=== PATIENT | female | born 2000 | race Caucasian/White ===

== ENCOUNTER → 2019-06-09 17:18 | Observation (INO) ==
[2019-06-09 14:15] LABS: Bilirubin,Urine Negative (Negative); Blood,Urine Negative (Negative); Color,Urine Yellow (Yellow); Glucose,Urine (UA) Normal (Normal); Ketones,Urine Negative (Negative); Leukocyte Esterase,Urine Negative (Negative); Nitrite,Urine Negative (Negative); Protein,Urine Trace mg/dL (Neg-Trace); Specific Gravity,Urine 1.018 (1.010-1.025); Urobilinogen,Urine Normal (Normal)
[2019-06-09 14:17] LABS: Bacteria,Urine Few per hpf (None-Few); Hyaline Casts,Urine None Seen per lpf (None-Few); Squamous Epithelial Cell,Urine Many per lpf (None-Few)
[2019-06-09 14:29] LABS: Clarity,Urine Hazy (Clear)
[2019-06-09 14:56] LABS: Amphetamine Screen,Urine Negative ng/mL (Cutoff=1000); Barbiturate Screen,Urine Negative ng/mL (Cutoff=200); Benzodiazepines Screen,Urine Negative ng/mL (Cutoff=200); Cannabinoid Screen,Urine Positive ng/mL (Cutoff = 50); Cocaine Screen,Urine Negative ng/mL (Cutoff= 300); Opiate Screen,Urine Negative ng/mL (Cutoff=300); Phencyclidine Screen,Urine Negative ng/mL (Cutoff=25)
[2019-06-09 15:10] LABS: Basophils % 0.3 %; Eosinophils # 0.3 K/mcL (0.0-0.6); Eosinophils % 2.2 %; Hematocrit 36.1 % (35.3-44.9); Immature Granulocytes % 0.7 % (0-4); Lymphocytes # 1.7 K/mcL (0.6-4.6); Lymphocytes % 10.9 %; Mean Corpuscular HGB Conc 33.2 g/dL (31.6-35.5); Mean Corpuscular Hemoglobin 32.1 pg (28.0-33.3); Mean Corpuscular Volume 96.5 fL (83.0-100.0); Mean Platelet Volume 11.2 fL (9.4-12.4); Monocytes # 0.5 K/mcL (0.0-1.3); Monocytes % 3.3 %; Neutrophils # 12.5 K/mcL (1.6-8.9); Platelet Count 207 K/mcL (140-400); Red Blood Count 3.74 M/mcL (3.82-4.97); Red Cell Distribution Width 12.6 % (11.5-14.5); Segmented Neutrophils % 82.6 %; White Blood Count 15.1 K/mcL (4.3-11.1)
[2019-06-09 15:25] LABS: Amylase 77 Units/L (29-103); Lipase 35 Units/L (11-82)
--- NOTE | 2019-06-09 17:15 | OB/GYN Progress Note ---
Date of Encounter: 06/09/19 Time of Encounter: 17:07 - Assessment and Plan (1) 20 weeks gestation of Current Visit: Yes Status: Acute (2) Nausea and vomiting during Current Visit: Yes Status: Acute Patient given 1.5 L IV hydration, IV Phenergan, Zofran and Reglan. Patient spent most of triage evaluation sitting in the shower. Patient refused to attempt any food, did tolerate small sips of Sprite. Patient insisting upon being discharged home, states she does not feel any better, and does not feel we are going to do anything to make her better. Prescription for Zofran sent to pharmacy of choice, [facility] in [place]. Discharged home with labor and when to return to triage precautions. Encouraged patient to take by mouth food for adequate nutrition for herself and baby. Patient verbalizes understanding that nutrition is important, but states she is unable to take by mouth intake and refuses to attempt after multiple IV medications. Discussed with patient's bite corbin up-and-down arm, discussed with patient need for potential counseling and referral to forensic social worker, patient refused. Update telephone encounter sent to Dr. Rizo. Subjective - Subjective Interval history: 26+6 weeks gestation presents to triage with complaints of severe emesis nausea and vomiting. Patient states she has had constant nausea and vomiting throughout this entire with severe abdominal pain, getting worse yesterday and today. Last ate and tolerated food yesterday dinner. Reports good movement, denies cramping, vaginal bleeding or leaking of fluid. Patient has been using Zofran at home, ran out of Zofran and has not refill prescription on Wednesday. Admits to using marijuana. Patient noted with multiple bite corbin up and down both arms bilaterally, patient states she bites her self to deal with her symptoms. Antepartum ROS: movement normal, no loss of fluid, no vaginal bleeding, no contractions Objective - Vital Signs Vital Signs: Intake and Output 06/09/19 06/09/19 06/09/19 07:59 15:59 23:59 Other: Weight 48.5 kg Patient Weight 06/09/19 23:59 Weight 48.5 kg - Exam FHR: auscultation normal FHR comments: heart tones 150 per Doppler Abdomen: Present: soft - Labs Labs: Abnormal lab results WBC 15.1 K/mcL (4.3-11.1) H 06/09/19 14:50 RBC 3.74 M/mcL (3.82-4.97) L 06/09/19 14:50 Neutrophils # 12.5 K/mcL (1.6-8.9) H 06/09/19 14:50 Urine Clarity Hazy (Clear) A 06/09/19 14:00 Urine Microscopic RBC 3-5 per hpf (0-3) H 06/09/19 14:00 Ur Squamous Epith Cells Many per lpf (None-Few) H 06/09/19 14:00 Ur Culture Indicated? YES (NO) A 06/09/19 14:00 U Marijuana (THC) Screen Positive ng/mL (Cutoff = 50) H 06/09/19 14:00
[~2019-06-09 17:18] MED LIST: *HR* Promethazine 25 MG/ML VIAL IVP ONE; Metoclopramide 10 MG/2 ML VIAL IVP ONE; Ondansetron 4 MG/2 ML VIAL IVP ONE; Ringers Solution, Lactated 1,000 ML IVC ONE; Ringers Solution, Lactated 1,000 ML IVC SCH
== END | disposition home or self-care (01) ==
LOC: 1NENULAB
PROVIDERS: ADMIT Advanced Practice Midwife; ATTEND Advanced Practice Midwife

== ENCOUNTER → 2019-09-26 16:30 | Observation (INO) ==
[2019-09-26 15:16] LABS: Bilirubin,Urine Negative (Negative); Blood,Urine Negative (Negative); Clarity,Urine Cloudy (Clear); Color,Urine Yellow (Yellow); Glucose,Urine (UA) Normal (Normal); Ketones,Urine Negative (Negative); Leukocyte Esterase,Urine Negative (Negative); Nitrite,Urine Negative (Negative); PH,Urine 7.5 pH Units (5.0-8.0); Protein,Urine Negative (Neg-Trace); Specific Gravity,Urine 1.016 (1.010-1.025); Urobilinogen,Urine Normal (Normal)
[2019-09-26 15:17] LABS: Bacteria,Urine None Seen per hpf (None-Few); Hyaline Casts,Urine None Seen per lpf (None-Few); Squamous Epithelial Cell,Urine Many per lpf (None-Few); WBC,Urine 0-3 per hpf (0-3)
[2019-09-26 15:47] LABS: Amphetamine Screen,Urine Negative ng/mL (Cutoff=1000); Barbiturate Screen,Urine Negative ng/mL (Cutoff=200); Benzodiazepines Screen,Urine Negative ng/mL (Cutoff=200); Cannabinoid Screen,Urine Positive ng/mL (Cutoff = 50); Cocaine Screen,Urine Negative ng/mL (Cutoff= 300); Opiate Screen,Urine Negative ng/mL (Cutoff=300); Phencyclidine Screen,Urine Negative ng/mL (Cutoff=25)
[~2019-09-26 16:30] MED LIST changes: -*HR* Promethazine 25 MG/ML VIAL IVP ONE; +Acetaminophen 325 MG TABLET PO ONE; -Metoclopramide 10 MG/2 ML VIAL IVP ONE; -Ondansetron 4 MG/2 ML VIAL IVP ONE; -Ringers Solution, Lactated 1,000 ML IVC ONE; -Ringers Solution, Lactated 1,000 ML IVC SCH
== END | disposition home or self-care (01) ==
LOC: 1NENULAB
PROVIDERS: ADMIT Obstetrics & Gynecology; ATTEND Obstetrics & Gynecology